=== PATIENT | female | born 1970 | race Hispanic/Latino ===

== ENCOUNTER 2018-02-16 09:06 | Outpatient (CLI) | payer BC | END 2018-02-16 09:07 | disposition home or self-care (01) | LOC: BICMAMMO 09:06 | DX: Z12.31 Encounter for screening mammogram for malignant neoplasm of breast (principal); Z80.3 Family history of malignant neoplasm of breast | CPT/HCPCS: 77063; 77067 ==

== ENCOUNTER 2018-03-12 19:30 | Outpatient (CLI) | payer BC | END 2018-03-12 19:31 | disposition home or self-care (01) | LOC: SLEEPLAB 19:30 | PROVIDERS: ATTEND Family Medicine | DX: G47.33 Obstructive sleep apnea (adult) (pediatric) (principal); G47.30 Sleep apnea, unspecified | CPT/HCPCS: 95811 ==

== ENCOUNTER 2018-04-17 06:34 | Day surgery (SDC) | payer BC ==
[2018-04-16 15:56] VITALS: BMI 45.4
--- NOTE | 2018-04-17 05:15 | HP ---
SHORT STAY HISTORY AND PHYSICAL DATE OF ADMISSION: 04/17/2018 HISTORY OF PRESENT ILLNESS: This is a 47-year-old female with chronic GI symptoms. She has been hav ing chronic cough, excessive mucous secretions over the last few weeks. She also has heartburn and r egurgitation off and on. She has regurgitation and heartburn. The patient also has a history of coughing and choking during the mealtime. The patient has had dysphagia to solid foods off and on . The patient comes for an EGD because of chronic acid reflux, dyspepsia, and dysphagia. She also h ad a colonoscopy for colon cancer screening at the same time. ALLERGIES: FLAGYL, HYDROCODONE. MEDICAL ILLNESSES: 1. Obesity. 2. Anxiety, depression. 3. Seasonal allergies. 4. Chronic acid reflux. 5. Hypertension. SURGERIES: Bladder lift. PHYSICAL EXAMINATION: VITAL SIGNS: Pulse is 72, blood pressure 130/70. HEENT: Conjunctivae clear. NECK: Supple. CARDIOVASCULAR SYSTEM: First and second heart sounds normal. LUNGS: Clear to auscultation. ABDOMEN: Soft. No organomegaly. No tenderness. No masses. Bowel sounds normal. EXTREMITIES: No edema. CLINICAL IMPRESSION: 1. Chronic dyspepsia, dysphagia. 2. Colon cancer screening. PLAN: EGD and colonoscopy.
[2018-04-17] MEDS ORDERED: Fentanyl 100 MCG/2 ML VIAL ONE (08:41)
--- NOTE | 2018-04-17 10:55 | OP ---
DATE OF PROCEDURE: 04/17/2018 SURGEON: Jen Lazo M.D. OPERATIVE PROCEDURE: 1. Esophagogastroduodenoscopy. 2. Esophageal dilatation with a size 15-18 mm to stage 3. PREOPERATIVE DIAGNOSES: 1. Worsening acid reflux. 2. Coughing and choking in the nighttime. 3. History of dysphagia. POSTOPERATIVE DIAGNOSES: The exam is actually normal except there is questionable narrowing of the GE junction. However, balloon dilation resulted in no mucosal oozing of blood or any tear. PROCEDURE IN DETAIL: The patient was placed on her left lateral position and was given sedation by Anesthesia Department. A Pentax video gastroscope under direct vision was passed down the oropharynx, past the GE junction, into the stomach. The vocal cords appeared healthy. Although patient complains of worsening acid reflux, at endoscopy the mucosa appeared normal. No erosions or any esophagitis seen. At the GE junction, the lumen appears slightly narrowed. However, the scope advanced into the stomach without difficulty. Retroflexion failed to show any pathology in the fundus or cardia. The gastric body and gastric antrum, no pathology seen. The scope advanced into the duodenal bulb, descending duodenum. No pathology seen. There are normal bowel sounds present. The mucosa appeared normal .. The scope was withdrawn back into the proximal stomach and a Bard balloon size 15-18 mm placed through the biopsy channel and placed in the GE junction. Initially, it appeared to be tight, but the balloonl dilation to stage 1, stage 2 and stage 3, did not feel any mucosal tear or any oozing of blood. The balloon was inflated to stage 3 and was carefully withdrawn in the GE junction back and forth several times without any resistance.. The stomach was decompressed and scope removed. DISCHARGE PLANNING: This is a 47-year-old female with chronic acid reflux over the last several years. She has been having worsening symptoms. She has more of regurgitation noted, coughing and choking at nighttime. She also gives history of dysphagia. Surprisingly, the EGD showed no pathology at all. The mucosa appeared normal to the esophagus. No stricture seen. The colonoscopy is negative. DISCHARGE RECOMMENDATIONS: 1. Weight loss stressed to the patient. 2. Small frequent meals. 3. Avoid eating food 4 hours before bedtime. 4. Keep head elevated by 6 to 8 inches_ at nighttime. 5. Repeat colonoscopy in 10 years. 6.Reglan 10 mg three times daily. MTDD
--- NOTE | 2018-04-17 13:42 | OP ---
DATE OF PROCEDURE: 04/17/2018 OPERATIVE PROCEDURE: Colonoscopy. PREOPERATIVE DIAGNOSIS: A 47-year-old female, undergoing colonoscopy for colon cancer screening. POSTOPERATIVE DIAGNOSIS: Normal colonoscopy. PROCEDURE IN DETAIL: The patient was placed on her left lateral position and was given sedation by A nesthesia Department. A rectal exam was done before the scope was advanced into the rectum. No lesi on was felt on rectal exam. A Pentax video colonoscope was introduced into the rectum and advanced a ll the way into the cecum. The prep was good. At the appendicular opening, ileocecal valve and cecu m, no pathology seen. The mucosa appears normal throughout the colon with normal vascular pattern. Withdrawal of scope from the cecum to the ascending colon and hepatic flexure, no pathology seen. Th e transverse colon, splenic flexure, descending colon and sigmoid colon, no pathology seen. Retrofle xion of the scope in the rectum showed no pathology.
[2018-04-17] MEDS ORDERED: Lidocaine 1% PF 5 ML VIAL ONE (16:18)
[2018-04-17] MEDS ORDERED: PROPOFOL 200 MG/20 ML VIAL ONE (16:18)
== END 2018-04-17 10:01 | disposition home or self-care (01) ==
LOC: SDC 06:34
PROVIDERS: ATTEND Internal Medicine Gastroenterology
PROC: 0D758ZZ Dilation of Esophagus, Via Natural or Artificial Opening Endoscopic (ICD-10-PCS; principal; 2018-04-17)
PROC: 0DJD8ZZ Inspection of Lower Intestinal Tract, Via Natural or Artificial Opening Endoscopic (ICD-10-PCS; principal; 2018-04-17)
DX: Z12.11 Encounter for screening for malignant neoplasm of colon (principal); K21.9 Gastro-esophageal reflux disease without esophagitis; R13.10 Dysphagia, unspecified; F41.8 Other specified anxiety disorders; I10 Essential (primary) hypertension; J30.2 Other seasonal allergic rhinitis; E66.9 Obesity, unspecified; Z68.42 Body mass index [BMI] 45.0-49.9, adult; Z79.51 Long term (current) use of inhaled steroids; Z79.899 Other long term (current) drug therapy; Z88.1 Allergy status to other antibiotic agents; Z88.5 Allergy status to narcotic agent
CPT/HCPCS: J2001; J2704; J3010

== ENCOUNTER 2019-02-20 11:47 | Outpatient (CLI) | payer BC ==
--- NOTE | 2019-02-20 16:00 | MMO ---
Bilateral MAMMO Bilat Screen [facility]. CLINICAL HISTORY: Patient is 48 years old and is seen for screening. The patient has no family history of breast cancer. The patient has no personal history of cancer. VIEWS: The views performed were: bilateral craniocaudal with tomosynthesis and bilateral mediolateral oblique with tomosynthesis. FILMS COMPARED: The present examination has been compared to prior imaging studies performed at [facility] on 02/16/2018, at [facility] on 12/24/2014 and 01/26/2017, and at [facility] on 11/10/2010. This study has been interpreted with the assistance of computer-aided detection. MAMMOGRAM FINDINGS: There are scattered fibroglandular densities. There are no suspicious masses, suspicious calcifications, or new areas of architectural distortion. IMPRESSION: THERE IS NO MAMMOGRAPHIC EVIDENCE OF MALIGNANCY. A ROUTINE FOLLOW-UP MAMMOGRAM IN 1 YEAR IS RECOMMENDED. THE RESULTS OF THIS EXAM WERE SENT TO THE PATIENT. ACR BI-RADS Category 1 - Negative MAMMOGRAPHY NOTE: 1. A negative mammogram report should not delay a biopsy if a dominant of clinically suspicious mass is present. 2. Approximately 10% to 15% of breast cancers are not detected by mammography. 3. Adenosis and dense breasts may obscure an underlying neoplasm. Reported by: PIERRE CUTLER MD Electonically Signed: [id number]
== END 2019-02-20 11:48 | disposition home or self-care (01) ==
LOC: BICMAMMO 11:47
PROVIDERS: ATTEND Advanced Practice Midwife
DX: Z12.31 Encounter for screening mammogram for malignant neoplasm of breast (principal)
CPT/HCPCS: 77063; 77067

== ENCOUNTER 2021-12-17 13:46 | Outpatient (CLI) | payer BC | END 2021-12-17 13:47 | disposition home or self-care (01) | LOC: BICMAMMO 13:46 | PROVIDERS: ATTEND Family Medicine | DX: Z12.31 Encounter for screening mammogram for malignant neoplasm of breast (principal) | CPT/HCPCS: 77063; 77067 ==

== ENCOUNTER 2022-02-17 08:05 | Outpatient (CLI) | payer BC | END 2022-02-17 08:06 | disposition home or self-care (01) | LOC: BICULT 08:05 | PROVIDERS: ATTEND Nurse Practitioner Women's Health | DX: N95.0 Postmenopausal bleeding (principal); R93.89 Abnormal findings on diagnostic imaging of other specified body structures | CPT/HCPCS: 76856 ==

== ENCOUNTER 2024-01-26 10:57 | Outpatient (CLI) | payer BC | END 2024-01-26 10:58 | disposition home or self-care (01) | LOC: BICMAMMO 10:57 | PROVIDERS: ATTEND Family Medicine | DX: Z12.31 Encounter for screening mammogram for malignant neoplasm of breast (principal) | CPT/HCPCS: 77063; 77067 ==

== ENCOUNTER 2024-03-29 10:22 | Outpatient (CLI) | payer BC ==
[2024-03-29 11:37] LABS: #Basophils 0.04 10x3/uL (0.0-0.2); %Basophils 0.5 % (0.0-1.0); %Eosinophils 2.6 % (0.0-10.0); %Lymphocytes 35.4 % (21.0-51.0); %Monocytes 5.7 % (0.0-10.0); %Neutrophils 55.6 % (42.0-75.0); Hematocrit 39.7 % (36.0-47.0); Mean Corpuscular HGB CONC 32.7 g/dL (32.0-36.0); Mean Corpuscular Hemoglobin 30.8 pg (27.0-31.0); Mean Corpuscular Volume 94.1 fL (78.0-98.0); Mean Platelet Volume 10.3 fL (7.4-10.4); Platelet Count 268 10x3/uL (130-400); RBC Distribution Width 13.2 % (11.5-14.5); Red Blood Cell (RBC) Count 4.22 mill/uL (4.20-5.40)
[2024-03-29 11:48] LABS: Anion Gap 11 mmol/L (10-20); BUN (Urea Nitrogen) 17 mg/dL (9.8-20.1); Calc. Creatinine Clearance 0 mL/min (70-130); Calcium 9.1 mg/dL (7.8-10.44); Carbon Dioxide 28 mmol/L (22-29); Chloride 106 mmol/L (98-107); Estimated GFR 63; Glucose 90 mg/dL (70-105); Potassium 4.1 mmol/L (3.5-5.1); Sodium 141 mmol/L (136-145)
[2024-03-29 11:51] LABS: Hemoglobin A1c 5.5 % (4.0-6.0)
== END 2024-03-29 10:23 | disposition home or self-care (01) ==
LOC: LABBT 10:22
PROVIDERS: ATTEND Orthopaedic Surgery
DX: Z01.818 Encounter for other preprocedural examination (principal); G56.03 Carpal tunnel syndrome, bilateral upper limbs; M65.4 Radial styloid tenosynovitis [de Quervain]; M65.312 Trigger thumb, left thumb
CPT/HCPCS: 80048; 83036; 85025; 93005; 93010

== ENCOUNTER 2024-04-01 07:04 | Day surgery (SDC) | payer BC ==
[2024-03-29 10:33] VITALS: BMI 39.2
[2024-04-01] MEDS ORDERED: PROPOFOL 20 ML ONE (08:35)
[2024-04-01] MEDS ORDERED: fentaNYL 50 mcg/mL 1 mL Vial ONE ×3 (08:35→11:11)
[2024-04-01] MEDS ORDERED: CEFAZOLIN 2 GM VIAL ONE (09:13)
[2024-04-01] MEDS ORDERED: Lidocaine 1% (PF) 30 ML VIAL ONE (09:47)
[2024-04-01] MEDS ORDERED: Ondansetron PF 4 MG/2 ML Vial ONE (10:06)
== END 2024-04-01 13:08 | disposition home or self-care (01) ==
LOC: SDC 07:04
PROVIDERS: ATTEND Orthopaedic Surgery
PROC: 01N54ZZ Release Median Nerve, Percutaneous Endoscopic Approach (ICD-10-PCS; principal; 2024-04-01)
PROC: 0LN80ZZ Release Left Hand Tendon, Open Approach (ICD-10-PCS; principal; 2024-04-01)
PROC: 0KN80ZZ Release Left Upper Arm Muscle, Open Approach (ICD-10-PCS; principal; 2024-04-01)
DX: G56.03 Carpal tunnel syndrome, bilateral upper limbs (principal); M65.4 Radial styloid tenosynovitis [de Quervain]; M65.312 Trigger thumb, left thumb; M18.11 Unilateral primary osteoarthritis of first carpometacarpal joint, right hand; G47.33 Obstructive sleep apnea (adult) (pediatric); E11.9 Type 2 diabetes mellitus without complications; F32.A Depression, unspecified; I10 Essential (primary) hypertension; Z88.5 Allergy status to narcotic agent; Z88.8 Allergy status to other drugs, medicaments and biological substances; Z91.013 Allergy to seafood; Z79.899 Other long term (current) drug therapy; Z79.84 Long term (current) use of oral hypoglycemic drugs
CPT/HCPCS: A6223; J2405; J2704; J3010